=== PATIENT | male | born 1990 ===

== ENCOUNTER 2019-06-14 11:35 | Emergency (ER) | payer OTHER ==
[~2019-06-14] VITALS: Ht 175.3 cm; Wt 72.6 kg
[2019-06-14 11:46] VITALS: Ht 175.3 cm; Wt 72.6 kg
[2019-06-14 12:32] VITALS: BP 117/64
== END 2019-06-14 12:33 | disposition other institution (70) ==
LOC: ED 11:35
DX: Z02.89 Encounter for other administrative examinations (principal)
CPT/HCPCS: 82962